=== PATIENT | male | born 1945 | race Caucasian/White ===

== ENCOUNTER 2017-11-24 15:33 | Emergency (ER) | payer MEDICARE ==
[2017-11-24 15:51] VITALS: BP 112/82
[2017-11-24] MEDS ORDERED: Sodium Chloride 0.9% 10 ML Syringe FLUSH PRN (16:05)
[2017-11-24] MEDS ORDERED: Ondansetron 4 MG/2 ML SDV IV ONE (16:06)
[2017-11-24] MEDS ORDERED: Sodium Chloride 0.9% 1,000 ML IV ONE (16:06)
[2017-11-24] MEDS ORDERED: Atropine/Diphenoxylate 0.025-2.5 MG Tab PO ONE (16:06)
[2017-11-24 16:43] LABS: ANION GAP 13.1; CHLORIDE,CL 103 mmol/L (101-111); SODIUM,NA 141 mmol/L (135-145)
--- NOTE | 2017-11-24 17:51 | EDM.PDOC ---
Scribed by Arabella Nix 11/24/17 0696 for John Aguirre MD ED HPI GENERAL MEDICAL PROBLEM - General Chief Complaint: General Stated Complaint: FLU Time Seen by Provider: 11/24/17 15:52 Source of Information: Reports: Patient, RN, RN Notes Reviewed History Limitations: Reports: No Limitations - History of Present Illness INITIAL COMMENTS - FREE TEXT/NARRATIVE: Patient presents to ER from home in [place] by private vehicle with complaint of sudden onset of nausea, vomiting and diarrhea at 3 a.m. this morning. Patient states he is HIV positive, but has been managing well and has been compliant with his anti-viral therapy. He ate Ravioli in tomato sauce a very large amount late last evening for dinner. Patient states that his stomach felt a little uneasy when he went to bed but he denies any abdominal pain. Patient states currently the nausea and vomiting have subsided but the diarrhea has continued especially if he eats or drinks anything. Denies fever or chills, no urinary symptoms, or any blood or black material in his emesis or diarrhea. His friend that he lives with ate a small amount of the Ravioli last evening and did not develop any symptoms. Patient states he is not sure if the food was bad or he simply over ate. Onset: Today Duration: Getting Worse Location: Reports: Abdomen Quality: Reports: Ache Severity: Moderate Improves with: Reports: None Worsens with: Reports: None Associated Symptoms: Reports: No Other Symptoms Generalized Pain Score (Numeric/FACES): 7 - Related Data Allergies Allergy/AdvReac Type Severity Reaction Status Date / Time No Known Allergies Allergy Verified 11/24/17 15:48 Home Meds: Home Meds Abacavir Sulfate [Abacavir] 0 mg PO ASDIRECTED 05/06/16 [History] Atazanavir Sulfate [Reyataz] 0 mg PO ASDIRECTED 05/06/16 [History] Past Medical History HEENT History: Reports: Hard of Hearing Cardiovascular History: Reports: None Respiratory History: Reports: None Gastrointestinal History: Reports: None Musculoskeletal History: Reports: None Neurological History: Reports: None Psychiatric History: Reports: None Endocrine/Metabolic History: Reports: None Hematologic History: Reports: None Immunologic History: Reports: HIV Oncologic (Cancer) History: Reports: None Dermatologic History: Reports: None - Infectious Disease History Infectious Disease History: Reports: HIV-Human Immunodeficiency Virus Social & Family History - Caffeine Use Caffeine Use: Reports: Coffee ED ROS GENERAL - Review of Systems Review Of Systems: ROS reveals no pertinent complaints other than HPI. ED EXAM, GENERAL - Physical Exam Exam: See Below Exam Limited By: No Limitations General Appearance: Other (chronically ill but non toxic appearing) Eye Exam: Bilateral Eye: EOMI, PERRL, Other (mildly icteric sclerae) Nose: Normal Inspection Throat/Mouth: Normal Lips, Normal Oropharynx, Normal Voice, No Airway Compromise , Other (dry oral membranes) Head: Atraumatic, Normocephalic Neck: Normal Inspection, Supple, Non-Tender, Full Range of Motion Respiratory/Chest: No Respiratory Distress, Lungs Clear, Normal Breath Sounds, No Accessory Muscle Use, Chest Non-Tender Cardiovascular: Regular Rate, Rhythm, No Edema, Tachycardia GI/Abdominal: Soft, Non-Tender, No Distention, Abnormal Bowel Sounds (slightly hyperactive). No: Guarding, Rigid, Rebound (Male) Exam: Deferred Rectal (Males) Exam: Deferred Back Exam: Normal Inspection, Full Range of Motion, NT Extremities: Normal Inspection, Normal Range of Motion, Non-Tender, Normal Capillary Refill, No Pedal Edema Neurological: Alert, Oriented, No Motor/Sensory Deficits Psychiatric: Anxious Skin Exam: Warm, Dry, Intact, Normal Color, No Rash Course - Vital Signs Last Recorded V/S: Last Vital Signs Temp 36.5 C 11/24/17 15:50 Pulse 108 H 11/24/17 15:50 Resp 15 11/24/17 15:50 BP 112/82 11/24/17 15:50 Pulse Ox 94 L 11/24/17 15:50 - Orders/Labs/Meds Orders: Active Orders 24 hr Category Date Time Status Peripheral IV Care [RC] . DIRECTED Care 11/24/17 16:06 Active C DIFFICILE TOXIN BY PCR [MREF] Stat Lab 11/24/17 16:22 Received CULTURE BLOOD [BC] Stat Lab 11/24/17 16:13 Received CULTURE STOOL [RM] Stat Lab 11/24/17 16:22 Received DRUG SCREEN URINE BIORAD [URCHEM] Stat Lab 11/24/17 16:05 Ordered SHIGA TOXIN 1 & 2 [MREF] Stat Lab 11/24/17 16:22 Received UA W/MICROSCOPIC [URIN] Stat Lab 11/24/17 16:04 Ordered Sodium Chloride 0.9% [Saline Flush] Med 11/24/17 16:05 Active 10 ml FLUSH ASDIRECTED PRN Peripheral IV Insertion Adult [OM.PC] Stat Oth 11/24/17 16:04 Ordered Medication Orders Sodium Chloride (Saline Flush) 10 ml FLUSH ASDIRECTED PRN PRN Reason: Keep Vein Open Last Admin: 11/24/17 16:29 Dose: 10 ml Labs: Laboratory Tests 11/24/17 11/24/17 11/24/17 Range/Units 16:13 16:13 16:13 WBC 11.9 H (5.0-10.0) 10^3/uL RBC 6.05 (4.6-6.2) 10^6/uL Hgb 18.4 H (14.0-18.0) g/dL Hct 55.3 H (40.0-54.0) % MCV 91.4 (80-100) fL MCH 30.4 (27.0-34.0) pg MCHC 33.3 (33.0-35.0) g/dL Plt Count 224 (150-450) 10^3/uL Neut % (Auto) 83.3 H (42.2-75.2) % Lymph % (Auto) 5.7 L (20.5-50.1) % [place] % (Auto) 10.1 H (2-8) % Eos % (Auto) 0.8 L (1.0-3.0) % Baso % (Auto) 0.1 (0.0-1.0) % Sodium 141 (135-145) mmol/L Potassium 4.1 (3.6-5.0) mmol/L Chloride 103 (101-111) mmol/L Carbon Dioxide 29.0 (21.0-31.0) mmol/L Anion Gap 13.1 BUN 23 H (7-18) mg/dL Creatinine 1.0 (0.6-1.3) mg/dL Est Cr Clr Drug Dosing 63.35 mL/min Estimated GFR (MDRD) > 60 BUN/Creatinine Ratio 23.00 Glucose 140 H (74-105) mg/dL Lactic Acid 1.4 (0.5-2.2) mmol/L Calcium 10.0 (8.4-10.2) mg/dl Total Bilirubin 2.9 H (0.2-1.0) mg/dL AST 20 (10-42) IU/L ALT 16 (10-60) IU/L Alkaline Phosphatase 77 (42-121) IU/L Total Protein 7.9 (6.7-8.2) g/dl Albumin 4.4 (3.2-5.5) g/dl Globulin 3.5 Albumin/Globulin Ratio 1.26 Amylase 30 (28-100) U/L Lipase 29 (22-51) U/L Meds: Medications Generic Name Dose Route Start Last Admin Trade Name Freq PRN Reason Stop Dose Admin Sodium Chloride 10 ml 11/24/17 16:05 11/24/17 16:29 Saline Flush FLUSH 10 ml ASDIRECTED PRN Administration Keep Vein Open Discontinued Medications Generic Name Dose Route Start Last Admin Trade Name Freq PRN Reason Stop Dose Admin Diphenoxylate HCl/Atropine 1 tab 11/24/17 16:06 11/24/17 16:29 Lomotil 0.025-2.5 Mg PO 11/24/17 16:07 1 tab ONETIME ONE Administration Sodium Chloride 1,000 mls @ 999 mls/hr 11/24/17 16:06 11/24/17 16:29 Normal Saline IV 11/24/17 17:06 999 mls/hr .BOLUS ONE Administration Ondansetron HCl 4 mg 11/24/17 16:06 11/24/17 16:29 Zofran IV 11/24/17 16:07 4 mg ONETIME ONE Administration - Re-Assessments/Exams Free Text/Narrative Re-Assessment/Exam: 11/24/17 17:51 Pt looks much better, and states he feel well following tx in ER. He denies pain or nausea. Departure - Departure Time of Disposition: 17:48 Disposition: Home, Self-Care 01 Condition: Good Clinical Impression: Nausea vomiting and diarrhea - Discharge Information Instructions: Nausea and Vomiting, Adult, Diarrhea, Adult, [id number] Forms: ED Department Discharge Additional Instructions: RX: Lomotil. Drink plenty of water. Diet as tolerated. Follow up with your primary doctor in 3 days and tell your doctor that stool culture results should be available in 3 days. Return to ER if worse at any time. - My Orders Last 24 Hours: My Active Orders 11/24/17 16:04 UA W/MICROSCOPIC [URIN] Stat Peripheral IV Insertion Adult [OM.PC] Stat 11/24/17 16:05 DRUG SCREEN URINE BIORAD [URCHEM] Stat Sodium Chloride 0.9% [Saline Flush] 10 ml FLUSH ASDIRECTED PRN 11/24/17 16:06 Peripheral IV Care [RC] . DIRECTED 11/24/17 16:13 CULTURE BLOOD [BC] Stat 11/24/17 16:22 C DIFFICILE TOXIN BY PCR [MREF] Stat CULTURE STOOL [RM] Stat SHIGA TOXIN 1 & 2 [MREF] Stat - Assessment/Plan Last 24 Hours: My Active Orders 11/24/17 16:04 UA W/MICROSCOPIC [URIN] Stat Peripheral IV Insertion Adult [OM.PC] Stat 11/24/17 16:05 DRUG SCREEN URINE BIORAD [URCHEM] Stat Sodium Chloride 0.9% [Saline Flush] 10 ml FLUSH ASDIRECTED PRN 11/24/17 16:06 Peripheral IV Care [RC] . DIRECTED 11/24/17 16:13 CULTURE BLOOD [BC] Stat 11/24/17 16:22 C DIFFICILE TOXIN BY PCR [MREF] Stat CULTURE STOOL [RM] Stat SHIGA TOXIN 1 & 2 [MREF] Stat I have read and agree with the documentation that has been completed regarding this visit. By signing this record, I attest that the documentation was completed in my physical presence and is an accurate record of the encounter.
== END 2017-11-24 18:00 | disposition home or self-care (01) ==
LOC: DL.ED 15:33
DX: R11.2 Nausea with vomiting, unspecified (principal); R19.7 Diarrhea, unspecified; B20 Human immunodeficiency virus [HIV] disease
CPT/HCPCS: 36415; 80053; 82150; 82272; 83605; 83690; 85025; 87040; 87045; 87046; 87493; 87899; 96361; 96374; 99284; A9270; J2405; J7030; J7050; 99283

== ENCOUNTER 2019-10-08 10:27 | Emergency (ER) | payer MEDICARE, OTHER ==
[2019-10-08 11:03] VITALS: BP 120/89; PULSE 92
--- NOTE | 2019-10-08 11:48 | EDM.PDOC ---
Scribed by Arabella Nix 10/08/19 1147 for Martha Nazario NP ED HPI GENERAL MEDICAL PROBLEM - General Chief Complaint: Respiratory Problem Stated Complaint: RESPIRATORY SYMPTOMS & PULLED MUSCLE Time Seen by Provider: 10/08/19 11:05 Source of Information: Reports: Patient, RN, RN Notes Reviewed History Limitations: Reports: No Limitations - History of Present Illness INITIAL COMMENTS - FREE TEXT/NARRATIVE: Patient presents to ER with a 10-day history of 'sinus, runny nose, cough and URI symptoms. He was seen at the [facility] on October 04, 2019. He has had no fe jamil. He has been taking Tylenol and Robitussin. Yesterday he developed left sided chest pain and weakness. 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 Left Chest Pain Score (Numeric/FACES): 5 - Related Data Allergies Allergy/AdvReac Type Severity Reaction Status Date / Time No Known Allergies Allergy Verified 10/08/19 11:42 Home Meds: Home Meds Aspirin 1 tab PO DAILY 10/08/19 [History] Bictegrav/Emtricit/Tenofov Ala [Biktarvy 50-200-25 mg Tablet] 1 tab PO DAILY 10/08/19 [History] Finasteride 1 tab PO DAILY 10/08/19 [History] Furosemide 40 mg PO DAILY 10/08/19 [History] Spironolactone [Aldactone] 12.5 mg PO DAILY 10/08/19 [History] Tamsulosin [Flomax] 2 cap PO DAILY 10/08/19 [History] atorvaSTATin [Lipitor] 20 mg PO BEDTIME 10/08/19 [History] carvediloL [Carvedilol] 12.5 mg PO BID 10/08/19 [History] lisinopriL [Lisinopril] 5 mg PO DAILY 10/08/19 [History] Past Medical History HEENT History: Reports: Hard of Hearing Cardiovascular History: Reports: None Respiratory History: Reports: None Gastrointestinal History: Reports: None Musculoskeletal History: Reports: None Other Musculoskeletal History: right arm fracture Neurological History: Reports: None Psychiatric History: Reports: None Endocrine/Metabolic History: Reports: None Hematologic History: Reports: None Immunologic History: Reports: HIV Oncologic (Cancer) History: Reports: None Dermatologic History: Reports: None - Infectious Disease History Infectious Disease History: Reports: HIV-Human Immunodeficiency Virus - Past Surgical History Musculoskeletal Surgical History: Reports: Other (See Below) Other Musculoskeletal Surgeries/Procedures:: right arm surgery Social & Family History - Family History Family Medical History: Noncontributory - Caffeine Use Caffeine Use: Reports: Coffee ED ROS GENERAL - Review of Systems Review Of Systems: Comprehensive ROS is negative, except as noted in HPI. ED EXAM, GENERAL - Physical Exam Exam: See Below Exam Limited By: No Limitations General Appearance: Alert, WD/WN, No Apparent Distress Respiratory/Chest: Other (left anterior chest tender to palpation over ribs, mild. ) Cardiovascular: Normal Peripheral Pulses, Regular Rate, Rhythm, No Edema, No Gallop, No JVD, No Murmur, No Rub GI/Abdominal: Normal Bowel Sounds, Soft, Non-Tender, No Organomegaly, No Distention, No Abnormal Bruit, No Mass (Male) Exam: Deferred Rectal (Males) Exam: Deferred Back Exam: Normal Inspection, Full Range of Motion, NT Extremities: Normal Inspection, Normal Range of Motion, Non-Tender, Normal Capillary Refill, No Pedal Edema Neurological: Alert, Oriented, CN II-XII Intact, Normal Cognition, Normal Gait, Normal Reflexes, No Motor/Sensory Deficits Psychiatric: Normal Affect, Normal Mood Skin Exam: No Rash Course - Vital Signs Text/Narrative:: EKG BBB; NSR. Not knew. His lungs are clear. Sat stable. He was most concern about the left anterior chest wall pain between the 4-5 ribs; no fall. This pain was reproducible. Most likely a costochondritis. Last Recorded V/S: Last Vital Signs Temp 98.8 F 10/08/19 10:57 Pulse 92 10/08/19 10:57 Resp 18 10/08/19 10:57 BP 120/89 10/08/19 10:57 Pulse Ox 95 10/08/19 10:57 - Orders/Labs/Meds Orders: Active Orders 24 hr Category Date Time Status EKG Documentation Completion [RC] URGENT Care 10/08/19 10:55 Active Chest 2V [CR] Urgent Exams 10/08/19 10:53 Stop Req Labs: Laboratory Tests 07/18/20 Range/Units 11:05 WBC 8.0 (5.0-10.0) 10^3/uL RBC 5.13 (4.6-6.2) 10^6/uL Hgb 16.3 D (14.0-18.0) g/dL Hct 47.3 (40.0-54.0) % MCV 92.2 (80-100) fL MCH 31.8 (27.0-34.0) pg MCHC 34.5 (33.0-35.0) g/dL Plt Count 209 (150-450) 10^3/uL Departure - Departure Time of Disposition: 11:34 Disposition: Home, Self-Care 01 Condition: Good Clinical Impression: Costochondritis - Discharge Information Instructions: Costochondritis, [id number] Forms: ED Department Discharge Additional Instructions: Patient to continue Robitussin OTC and Tylenol as at home. Heating pad to left chest Sepsis Event Note (ED) - Evaluation Sepsis Screening Result: No Definite Risk - Focused Exam Vital Signs: Vital Signs Temp Pulse Resp BP Pulse Ox 10/08/19 10:57 98.8 F 92 18 120/89 95 - My Orders Last 24 Hours: My Active Orders 10/08/19 10:53 Chest 2V [CR] Urgent 10/08/19 10:55 EKG Documentation Completion [RC] URGENT - Assessment/Plan Last 24 Hours: My Active Orders 10/08/19 10:53 Chest 2V [CR] Urgent 10/08/19 10:55 EKG Documentation Completion [RC] URGENT I have read and agree with the documentation that has been completed regarding this visit. By signing this record, I attest that the documentation was c ompleted in my physical presence and is an accurate record of the encounter.
== END 2019-10-08 12:04 | disposition home or self-care (01) ==
LOC: DL.ED 10:27
DX: M94.0 Chondrocostal junction syndrome [Tietze] (principal); B20 Human immunodeficiency virus [HIV] disease; Z79.82 Long term (current) use of aspirin; Z79.899 Other long term (current) drug therapy
CPT/HCPCS: 36415; 85027; 93005; 99283; 99285-25

== ENCOUNTER 2019-10-14 09:55 | Emergency (ER) | payer OTHER, MEDICARE ==
[2019-10-14 10:13] VITALS: BP 105/78; PULSE 75
[2019-10-14 11:29] LABS: ANION GAP 12.3 mEq/L (7-13); CHLORIDE,CL 100 mmol/L (98-107); SODIUM,NA 136 mmol/L (136-145)
--- NOTE | 2019-10-14 12:15 | EDM.PDOC ---
ED HPI GENERAL MEDICAL PROBLEM - General Chief Complaint: Cardiovascular Problem Stated Complaint: COMING FROM CLINIC Time Seen by Provider: 10/14/19 10:30 Source of Information: Reports: Patient, RN, RN Notes Reviewed, Other ([facility] staff) History Limitations: Reports: No Limitations, Other (FLANDREAU) - History of Present Illness INITIAL COMMENTS - FREE TEXT/NARRATIVE: Patient to ER from [facility]. States he has been short of breath and had decreased appetite. Patient states he did have a cough that began approximately 2 months ago, but has since resolved. Continues to be short of breath from time to time. 4 to 5 days ago began having decreased appetite. States a 7 pound weight loss. Unknown amount of time from for the weight loss. Admits to shortness of breath, and diarrhea 3 to 4 days ago which also has resolved. Patient states he has not had a bowel movement in 3 to 4 days since he had the diarrhea, but also states he has not been eating. Denies fever, chills, nausea/vomiting, chest pain, cough. 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 - Related Data Allergies Allergy/AdvReac Type Severity Reaction Status Date / Time No Known Allergies Allergy Verified 10/14/19 10:22 Home Meds: Home Meds Aspirin 1 tab PO DAILY 10/08/19 [History] Bictegrav/Emtricit/Tenofov Ala [Biktarvy 50-200-25 mg Tablet] 1 tab PO DAILY 10/08/19 [History] Finasteride 1 tab PO DAILY 10/08/19 [History] Furosemide 40 mg PO DAILY 10/08/19 [History] Spironolactone [Aldactone] 12.5 mg PO DAILY 10/08/19 [History] Tamsulosin [Flomax] 2 cap PO DAILY 10/08/19 [History] atorvaSTATin [Lipitor] 20 mg PO BEDTIME 10/08/19 [History] carvediloL [Carvedilol] 12.5 mg PO BID 10/08/19 [History] lisinopriL [Lisinopril] 5 mg PO DAILY 10/08/19 [History] Past Medical History HEENT History: Reports: Hard of Hearing Cardiovascular History: Reports: None Respiratory History: Reports: None Gastrointestinal History: Reports: None Genitourinary History: Reports: Prostate Disorder Musculoskeletal History: Reports: None Other Musculoskeletal History: right arm fracture Neurological History: Reports: None Psychiatric History: Reports: None Endocrine/Metabolic History: Reports: None Hematologic History: Reports: None Immunologic History: Reports: HIV Oncologic (Cancer) History: Reports: None Dermatologic History: Reports: None - Infectious Disease History Infectious Disease History: Reports: HIV-Human Immunodeficiency Virus - Past Surgical History Head Surgeries/Procedures: Reports: None Musculoskeletal Surgical History: Reports: Other (See Below) Other Musculoskeletal Surgeries/Procedures:: right arm surgery Social & Family History - Family History Family Medical History: Noncontributory - Tobacco Use Smoking Status *Q: Never Smoker Second Hand Smoke Exposure: No - Caffeine Use Caffeine Use: Reports: Coffee - Recreational Drug Use Recreational Drug Use: No ED ROS GENERAL - Review of Systems Review Of Systems: Comprehensive ROS is negative, except as noted in HPI. ED EXAM, GENERAL - Physical Exam Exam: See Below Exam Limited By: Other (FLANDREAU) General Appearance: Alert, WD/WN, No Apparent Distress Eye Exam: Bilateral Eye: EOMI, Normal Inspection Ears: Normal External Exam, Hearing Grossly Normal, Hearing Loss Nose: Normal Inspection Throat/Mouth: Normal Inspection, Normal Voice, No Airway Compromise Head: Atraumatic, Normocephalic Neck: Normal Inspection, Supple, Non-Tender, Full Range of Motion Respiratory/Chest: No Respiratory Distress, Lungs Clear, Normal Breath Sounds, No Accessory Muscle Use, Chest Non-Tender Cardiovascular: Normal Peripheral Pulses, Regular Rate, Rhythm, No Edema, No Gallop, No JVD, No Murmur, No Rub Peripheral Pulses: 2+: Radial (L), Radial (R) GI/Abdominal: Non-Tender, Distended, Abnormal Bowel Sounds (hypoactive), Other (Semifirm) (Male) Exam: Deferred Rectal (Males) Exam: Deferred Back Exam: Normal Inspection, Full Range of Motion, NT Extremities: Normal Inspection, Normal Range of Motion, Non-Tender, Normal Capillary Refill, No Pedal Edema Neurological: Alert, Oriented, CN II-XII Intact, Normal Cognition, Normal Gait, Normal Reflexes, No Motor/Sensory Deficits Psychiatric: Normal Affect, Normal Mood Skin Exam: Warm, Dry, Intact, Normal Color, No Rash Lymphatic: No Adenopathy Course - Vital Signs Last Recorded V/S: Last Vital Signs Temp 98.5 F 10/14/19 10:10 Pulse 75 10/14/19 10:10 Resp 20 10/14/19 10:10 BP 105/78 10/14/19 10:10 Pulse Ox 95 10/14/19 10:10 - Orders/Labs/Meds Orders: Active Orders 24 hr Category Date Time Status EKG Documentation Completion [RC] STAT Care 10/14/19 10:20 Active CULTURE URINE [RM] Stat Lab 10/14/19 11:46 Received Labs: Laboratory Tests 10/14/19 10/14/19 10/14/19 Range/Units 10:40 10:40 11:46 WBC 9.2 (5.0-10.0) 10^3/uL RBC 4.80 (4.6-6.2) 10^6/uL Hgb 15.0 (14.0-18.0) g/dL Hct 43.7 (40.0-54.0) % MCV 91.0 (80-100) fL MCH 31.3 (27.0-34.0) pg MCHC 34.3 (33.0-35.0) g/dL Plt Count 246 (150-450) 10^3/uL Neut % (Auto) 74.5 (42.2-75.2) % Lymph % (Auto) 11.2 L (20.5-50.1) % [place] % (Auto) 13.1 H (2-8) % Eos % (Auto) 1.0 (1.0-3.0) % Baso % (Auto) 0.2 (0.0-1.0) % Sodium 136 (136-145) mmol/L Potassium 4.3 (3.5-5.1) mmol/L Chloride 100 (98-107) mmol/L Carbon Dioxide 28 (21-32) mmol/L Anion Gap 12.3 (7-13) mEq/L BUN 18 (7-18) mg/dL Creatinine 1.27 (0.70-1.30) mg/dL Est Cr Clr Drug Dosing 48.43 mL/min Estimated GFR (MDRD) 56 BUN/Creatinine Ratio 14.2 (No establ ref range) Glucose 104 H (74-99) mg/dL Calcium 8.7 (8.5-10.1) mg/dL Total Bilirubin 1.1 H (0.2-1.0) mg/dL AST 15 (15-37) U/L ALT 28 (16-63) U/L Alkaline Phosphatase 117 H (46-116) U/L Troponin I < 0.017 (0.000-0.056) ng/mL Total Protein 7.1 (6.4-8.2) g/dL Albumin 2.8 L (3.4-5.0) g/dL Globulin 4.3 Albumin/Globulin Ratio 0.65 Urine Color Dark yellow (YELLOW) Urine Appearance Slightly cloudy (CLEAR) Urine pH 5.5 (5.0-9.0) Ur Specific [place] 1.025 (1.005-1.030) Urine Protein 30 H (NEGATIVE) Urine Glucose (UA) Negative (NEGATIVE) Urine Ketones Negative (NEGATIVE) Urine Occult Blood Trace-intact H (NEGATIVE) Urine Nitrite Negative (NEGATIVE) Urine Bilirubin Small H (NEGATIVE) Urine Urobilinogen 4.0 H (0.2-1.0) mg/dL Ur Leukocyte Esterase Large H (NEGATIVE) Urine RBC 0-5 /HPF Urine WBC 30-40 H (0-5/HPF) /HPF Ur Epithelial Cells Few (NOT SEEN) /HPF Urine Bacteria Moderate H (0-FEW/HPF) /HPF Urine Mucus Moderate H (NOT SEEN) /LPF Departure - Departure Time of Disposition: 12:13 Disposition: Home, Self-Care 01 Reason for Transfer *Q: Other Condition: Fair Clinical Impression: Urinary tract infection Qualifiers: Urinary tract infection type: site unspecified Hematuria presence: without hematuria Qualified Code(s): N39.0 - Urinary tract infection, site not specified Instructions: Antibiotic Medicine, Adult, [id number], Urinary Tract Infection, Adult, [id number] Referrals: Meredith Jones PA [Primary Care Provider] - Forms: ED Department Discharge Additional Instructions: Rx: Cephalexin Drink plenty of water Follow-up with your primary care provider for recheck of urine sample in 2 weeks Follow-up sooner if appetite does not improve, and symptoms do not improve Sepsis Event Note (ED) - Evaluation Sepsis Screening Result: No Definite Risk - My Orders Last 24 Hours: My Active Orders 10/14/19 10:20 EKG Documentation Completion [RC] STAT 10/14/19 11:46 CULTURE URINE [RM] Stat - Assessment/Plan Last 24 Hours: My Active Orders 10/14/19 10:20 EKG Documentation Completion [RC] STAT 10/14/19 11:46 CULTURE URINE [RM] Stat
== END 2019-10-14 12:20 | disposition home or self-care (01) ==
LOC: DL.ED 09:55
DX: N39.0 Urinary tract infection, site not specified (principal); Z21 Asymptomatic human immunodeficiency virus [HIV] infection status; Z79.82 Long term (current) use of aspirin; Z79.899 Other long term (current) drug therapy
CPT/HCPCS: 36415; 80053; 81001; 84484; 85025; 87086; 93005; 99285-25

== ENCOUNTER 2020-01-16 13:54 | Emergency (ER) | payer OTHER, MEDICARE ==
[2020-01-16] MEDS ORDERED: Sodium Bicarbonate 8.4% 50 MEQ/50 ML Syringe IOSS ONE (13:55)
[2020-01-16] MEDS ORDERED: EPINEPHrine 1:10,000 1 MG/10 ML Syringe IOSS ONE (13:55)
--- NOTE | 2020-01-16 15:17 | EDM.PDOC ---
ED HPI GENERAL MEDICAL PROBLEM - General Stated Complaint: CODE BLUE Time Seen by Provider: 01/16/20 13:54 Source of Information: Reports: EMS, EMS Notes Reviewed, Family, RN, RN Notes Reviewed, Significant Other History Limitations: Reports: Other - History of Present Illness INITIAL COMMENTS - FREE TEXT/NARRATIVE: Pt presents to the ER per [facility] with CPR in progress. [facility] called at 1323 for intercept with [facility] for an elderly male patient that had fallen and was now red in the face and not "talking right". At 1339 [facility] called back and states CPR in progress, that they are 10 minutes out. [facility] arrived at the ER at 1354. Pt in PEA, no pulse. Pt intubated upon arrival, being bagged with bag valve mask. Pupils are fixed and dilated, skin is cool to touch. Report from significant other was that the patient was outside waiting for his lunch to be delivered when she heard someone call for her. She states the person that was delivering meals kneeling next to the patient. Patient was on his hands and knees and stated he "could not stay awake". When [facility] arrived they state he was talking appropriately, A&O x3. At 1339 [facility] called and stated they had CPR in progress when they met [facility]. [facility] reports PEA, no pulse, and no spontaneous breaths. Patient was intubated upon arrival per [facility]. Breath sounds heard bilaterally with ventilation. Onset: Today, Sudden - Related Data Allergies Allergy/AdvReac Type Severity Reaction Status Date / Time No Known Allergies Allergy Verified 10/14/19 10:22 Home Meds: Home Meds Aspirin 1 tab PO DAILY 10/08/19 [History] Bictegrav/Emtricit/Tenofov Ala [Biktarvy 50-200-25 mg Tablet] 1 tab PO DAILY 10/08/19 [History] Finasteride 1 tab PO DAILY 10/08/19 [History] Furosemide 40 mg PO DAILY 10/08/19 [History] Spironolactone [Aldactone] 12.5 mg PO DAILY 10/08/19 [History] Tamsulosin [Flomax] 2 cap PO DAILY 10/08/19 [History] atorvaSTATin [Lipitor] 20 mg PO BEDTIME 10/08/19 [History] carvediloL [Carvedilol] 12.5 mg PO BID 10/08/19 [History] lisinopriL [Lisinopril] 5 mg PO DAILY 10/08/19 [History] Past Medical History HEENT History: Reports: Hard of Hearing Cardiovascular History: Reports: None Respiratory History: Reports: None Gastrointestinal History: Reports: None Genitourinary History: Reports: Prostate Disorder Musculoskeletal History: Reports: None Other Musculoskeletal History: right arm fracture Neurological History: Reports: None Psychiatric History: Reports: None Endocrine/Metabolic History: Reports: None Hematologic History: Reports: None Immunologic History: Reports: HIV Oncologic (Cancer) History: Reports: None Dermatologic History: Reports: None - Infectious Disease History Infectious Disease History: Reports: HIV-Human Immunodeficiency Virus - Past Surgical History Head Surgeries/Procedures: Reports: None Musculoskeletal Surgical History: Reports: Other (See Below) Other Musculoskeletal Surgeries/Procedures:: right arm surgery Social & Family History - Family History Family Medical History: Noncontributory - Caffeine Use Caffeine Use: Reports: Coffee ED ROS GENERAL - Review of Systems Review Of Systems: Comprehensive ROS is negative, except as noted in HPI. ED EXAM, CPR - Physical Exam Exam: See Below Limited By: Unresponsive Eye Exam: Bilateral Eye: Other (fixed, dilated, 4) Cardiovascular: CPR In Progress Neurological: Unresponsive Skin Exam: Cool, Cyanosis, Pallor Course - Re-Assessments/Exams Free Text/Narrative Re-Assessment/Exam: 01/16/20 16:59 CPR resumed in the ER after arrival. Time of called at 1404 after approximately 30 minutes of resuscitation. Significant other present. Siblings also present after CPR stopped. Dr. [facility]. Family and Significant other states past history of CHF, [place] 2 years ago with 80% blockage which the patient declined any surgical intervention. Also hx of HIV, dyslipidemia, HTN. Departure - Departure Time of Disposition: 17:00 Disposition: 20 Preliminary Cause of *Q: Cardiac Arrest Clinical Impression: Cardiac arrest - Discharge Information *PRESCRIPTION DRUG MONITORING PROGRAM REVIEWED*: No *COPY OF PRESCRIPTION DRUG MONITORING REPORT IN PATIENT OCTAVIO: No
== END 2020-01-16 14:04 | disposition expired ==
LOC: DL.ED 13:54
DX: I46.9 Cardiac arrest, cause unspecified (principal); B20 Human immunodeficiency virus [HIV] disease; Z79.82 Long term (current) use of aspirin; Z79.899 Other long term (current) drug therapy
CPT/HCPCS: 92950; 99285; J0171; 99284